=== PATIENT | female | born 1955 | race Caucasian/White ===

== ENCOUNTER 2021-10-29 15:30 | Outpatient (CLI) | payer BC | END 2021-10-29 15:31 | disposition home or self-care (01) | LOC: BICULT 15:30 | PROVIDERS: ATTEND Internal Medicine | DX: Z12.31 Encounter for screening mammogram for malignant neoplasm of breast (principal); R22.2 Localized swelling, mass and lump, trunk; I72.8 Aneurysm of other specified arteries | CPT/HCPCS: 76536; 77063; 77067 ==